=== PATIENT | female | born 1985 ===

== ENCOUNTER 2018-08-05 13:51 | Emergency (ER) | payer OTHER ==
[2018-08-05 14:00] VITALS: BP 156/73; PULSE 106; RESP 20; TEMP 98.1; O2SAT 100
--- NOTE | 2018-08-05 14:20 | ED PDOC ---
HPI:Nausea, Vomiting, Diarrhea Additional Complaint(s): Pt seen and examined at bedside with attending. 33F no PMH p/w 4 days of headche, nausea and then developed 2x NBNB vomiting yesterday with 3x diarrhea. She denies cough, sore throat, ear pain, SOB, chest pain, fevers, chills, sick contacts. PMD: None <Gloria Maurer - Last Filed: 08/05/18 17:00> <Huy Bennett III - Last Filed: 08/10/18 13:14> Time Seen by Provider: 08/05/18 14:08 Chief Complaint (Nursing): Abdominal Pain Supervising Attending Note - Attestation: I have personally seen and examined this patient.: Yes I have fully participated in the care of the patient.: Yes I have reviewed all pertinent clinical information, including history, physical exam and plan: Yes <Huy Bennett III - Last Filed: 08/10/18 13:14> Past Medical History Vital Signs: Last Vital Signs Temp 36.7 C 08/05/18 13:57 Pulse 106 H 08/05/18 13:57 Resp 20 08/05/18 13:57 BP 156/73 H 08/05/18 13:57 Pulse Ox 100 08/05/18 13:57 - Medical History PMH: No Chronic Diseases - Family History Family History: States: Hypertension (Mother) <Gloria Maurer - Last Filed: 08/05/18 17:00> Vital Signs: Last Vital Signs Temp 98.1 F 08/05/18 13:57 Pulse 106 H 08/05/18 13:57 Resp 20 08/05/18 13:57 BP 156/73 H 08/05/18 13:57 Pulse Ox 100 08/05/18 17:00 <Huy Bennett III - Last Filed: 08/10/18 13:14> - Home Medications Home Medications: Ambulatory Orders Medication Instructions Recorded Doxylamine/Pyridoxine HCl (B6) 1 each PO DAILY #30 tablet. 08/05/18 [Constantin Conte 10-10 mg Tablet] Pnv No.95/Ferrous Fum/Folic AC 1 each PO DAILY #30 tablet 08/05/18 [ Vitamin Tablet] - Allergies Allergies/Adverse Reactions: Allergies Allergy/AdvReac Type Severity Reaction Status Date / Time No Known Allergies Allergy Verified 08/05/18 13:55 Review of Systems ROS Statement: Except As Marked, All Systems Reviewed And Found Negative Gastrointestinal: Positive for: Nausea, Vomiting, Diarrhea Neurological: Positive for: Headache <Gloria Maurer - Last Filed: 08/05/18 17:00> Physical Exam - Reviewed Vital Signs Reviewed: Yes - Physical Exam Appears: Positive for: Non-toxic Head Exam: Positive for: ATRAUMATIC Skin: Positive for: Normal Color, Warm, Dry Eye Exam: Positive for: Normal appearance, EOMI, PERRL ENT: Positive for: Normal ENT Inspection Neck: Positive for: Supple Cardiovascular/Chest: Positive for: Tachycardia. Negative for: Murmur Respiratory: Positive for: Normal Breath Sounds. Negative for: Crackles, Rhonchi, Wheezing Gastrointestinal/Abdominal: Positive for: Bowel Sounds, Soft. Negative for: Tenderness Back: Negative for: L CVA Tenderness, R CVA Tenderness Neurologic/Psych: Positive for: Alert, Oriented <Gloria Maurer - Last Filed: 08/05/18 17:00> - ECG O2 Sat by Pulse Oximetry: 100 <Gloria Maurer - Last Filed: 08/05/18 17:00> Medical Decision Making Medical Decision Making: Suspect mild dehydration with the N/V/diarrhea that may be contributing to headache. - Zofran, Tylenol - PO Challenge - Urine dip, U preg - Reeval 1630 Patient reports headache is gone, she's tolerating juice and water, and reports a BM that was not diarrhea. Urine dip is negative U preg is positive <Gloria Maurer - Last Filed: 08/05/18 17:00> Disposition - Patient ED Disposition Is Patient to be Admitted: No Counseled Patient/Family Regarding: Diagnosis, Rx Given - Disposition Disposition: Routine/Home Disposition Time: 16:53 <Gloria Maurer - Last Filed: 08/05/18 17:00> <Huy Bennett III - Last Filed: 08/10/18 13:14> - Clinical Impression Clinical Impression: - Disposition Referrals: [facility] [Outside] Condition: GOOD Additional Instructions: Empieza a dafne vitaminas prenatales. Vaya a la oficina de [facility] para solicitar los servicios de [facility]. No tome ibuprofeno Beber abundante agua Ashanti fumar y dafne alcohol david tu embarazo. Regrese a la shannon de emergencias para el sangrado vaginal o clicos Prescriptions: Doxylamine/Pyridoxine HCl (B6) [Constantin Conte 10-10 mg Tablet] 1 each PO DAILY #30 tablet. Pnstas No.95/Ferrous Fum/Folic AC [ Vitamin Tablet] 1 each PO DAILY #30 tablet Instructions: Medications and , Alcohol and , Care, - The First Month Forms: [employer] (Lao), [employer] (Tunisian) Print Language: BENGALI
== END 2018-08-05 17:10 | disposition home or self-care (01) ==
LOC: H.ER 13:51
DX: Z33.1 Pregnant state, incidental (principal)